=== PATIENT | female | born 1975 | race Caucasian/White ===

== ENCOUNTER 2017-08-30 08:35 | Day surgery (SDC) | payer OTHER ==
[2017-08-22 12:05] VITALS: BMI 28.5
--- NOTE | 2017-08-30 08:21 | HP ---
[facility]ellite [facility] - Chief Complaint Chief Complaint: right elbow pain History of Present Illness: right elbow lateral epicondylitis History Source: Patient Limitations to Obtaining History: No Limitations - Past Medical History Allergies/Adverse Reactions: Allergies Allergy/AdvReac Type Severity Reaction Status Date / Time No Known Drug Allergies AdvReac Verified 08/22/17 12:10 ...LMP: 07/07/17 - Current Medications Current Medications: Home Medications Medication Instructions Recorded Cholecalciferol (Vitamin D3) 400 unit PO DAILY 08/22/17 [Vitamin D3 -] Multivitamin [One Daily] 1 each PO DAILY 08/22/17 Satellite Physical Exam - Physical Examination General Appearance: Well Nourished ENT: Clear Lung: Clear to auscultation Heart: Regular rate & rhythm Breasts: Soft Abdomen: Soft Extremities: No edema Satellite Impression/Plan - Impression/Plan Impression: left elbow lateral epicondylitis, ECRB tear Operative Procedure: left elbow lateral epicondylectomy, repair of ECRB tendon Date to be Performed: 08/30/17
[2017-08-30] MEDS ORDERED: ONDANSETRON 4 MG/2 ML VIAL IVPUSH PRN (10:09)
[2017-08-30] MEDS ORDERED: oxyCODONE HCL 5 MG TABLET PO PRN (10:09)
[2017-08-30] MEDS ORDERED: LACTATED RINGERS SOLUTION 1,000 ML IV SCH (10:15)
[2017-08-30] MEDS ORDERED: MIDAZOLAM HCL 2 MG/2 ML SINGLE DOSE VIAL ONE (10:29)
[2017-08-30] MEDS ORDERED: ceFAZolin SODIUM 1 GM VIAL ONE ×2 (10:30→11:11)
[2017-08-30] MEDS ORDERED: DEXAMETHASONE SOD PHOSPHATE 4 MG/1 ML VIAL ONE (10:30)
[2017-08-30] MEDS ORDERED: KETOROLAC TROMETHAMINE 30 MG/1 ML VIAL ONE (10:30)
[2017-08-30] MEDS ORDERED: ceFAZolin SODIUM 1 GM VIAL IVPB ONE (11:12)
[2017-08-30 13:08] VITALS: TEMP 97.6
[2017-08-30 15:59] VITALS: BP 118/85; PULSE 90
--- NOTE | 2017-08-31 10:37 | OP ---
DATE OF OPERATION: 08/30/2017 PREOPERATIVE DIAGNOSIS: Right elbow lateral epicondylitis and tear of extensor carpi radialis brevis tendon. POSTOPERATIVE DIAGNOSIS: Right elbow lateral epicondylitis and tear of extensor carpi radialis brevis tendon. PROCEDURE: Right elbow lateral epicondylectomy and repair of extensor carpi radialis brevis tendon. SURGEON: Wang Steele MD TANK TRUCK DRIVER: DEUCE Moncada ANESTHESIOLOGIST: Bladimir Irving CRNA ANESTHESIA: MAC anesthesia with local injection of 15 mL 0.50% Marcaine and 1% lidocaine mix. DRAINS: None. COMPLICATIONS: None. SPECIMEN: None. BLOOD LOSS: None. BLOOD GIVEN: None. FLUID REPLACEMENT: 700 mL INDICATION FOR PROCEDURE: This patient is a 41-year-old female with a preoperative diagnosis of chronic, recurrent right elbow lateral epicondylitis and tear of ECRB tendon. After understanding the potential risks, complications, alternatives, benefits of surgery, and the risks of nonsurgical treatment, the patient elected to undergo this procedure. Patient was brought to the operating room. Peripheral IV placed. IV sedation given. One gram of IV Ancef was given. MAC anesthesia was induced. Right upper extremity was prepped and draped in sterile fashion. She was placed into the lateral position. The right upper extremity was elevated, exsanguinated with an Esmarch bandage, and tourniquet inflated to 250 mmHg. A curvilinear incision was marked out over the lateral epicondyle, and 15 mL 0.50% Marcaine and 1% lidocaine mix were injected in and around the surgical incision. The incision was made with a No. 15 scalpel blade. Subcutaneous hemostasis was achieved with Bovie cautery. Dissection was done with Littler scissors to the lateral epicondyle. The adipose layer was dissected free of the fascia for visualization purposes. Next, a fresh No. 15 scalpel blade was utilized to make 3 longitudinal slits in the origin of the extensor mass/ECRB. One was in the middle, one was more superior in the [id number]-iod position, and one was more inferior. There was a small amount of degenerative-type inflammatory tissue which I removed, but that part of it was not extreme. I did curette the inside of the tendon. I curetted and mildly decorticated the lateral epicondyle in the area of these 3 slits. The area was irrigated and washed out. Next, I used a 0.062 K-wire and made 4 drill holes in each of the 3 slits. I drilled until marrow contents came out. The area was irrigated and washed out one more time, and using a 2-0 Vicryl in a running baseball-stitch fashion, closed the 3 longitudinal slits as well as the tear in the ECRB. The deep adipose layer was closed with 2-0 Vicryl. Final skin reapproximation was done with 4-0 undyed Vicryl in the deep dermal layer and a running subcuticular 4-0 Biosyn suture. The area was then washed and dried, covered with Steri-Strip, 4 x 4's, Webril, and a 5-inch posterior Ortho-Glass splint was applied and wrapped with 2 Keven bandages. The tourniquet was taken down after total tourniquet time of 45 minutes. There were no complications during the case. The patient tolerated the procedure quite well and was brought to the ambulatory recovery room in stable condition. Tam [id number]
== END 2017-08-30 13:50 | disposition home or self-care (01) ==
LOC: JASU-SURG 08:35
PROVIDERS: ATTEND Orthopaedic Surgery
PROC: 0LQ30ZZ Repair Right Upper Arm Tendon, Open Approach (ICD-10-PCS; principal; 2017-08-30 10:00)
DX: M77.11 Lateral epicondylitis, right elbow (principal); S66.318A Strain of extensor muscle, fascia and tendon of other finger at wrist and hand level, initial encounter; X58.XXXA Exposure to other specified factors, initial encounter; Y93.9 Activity, unspecified; Y92.9 Unspecified place or not applicable; Y99.9 Unspecified external cause status
CPT/HCPCS: 84703; 94760